=== PATIENT | male | born 1995 | race Caucasian/White ===

== ENCOUNTER → 2017-01-10 | Outpatient (REF) | payer OTHER ==
[~2017-01-10] MED LIST: ALBU83IN IN; CEFZIL250 MG PO; INSULIN NPH SQ; INSULIN REG SQ; LEVO25TABR OR; METO10TA2 OR; No Historical Meds; ZITH100S PO
[2017-01-10 11:36] LABS: BASO # 0.1 K/mm3 (0.0-0.2); BASO % 0.9 % (0.0-1.0); EOS # 0.2 K/mm3 (0.0-0.50); EOS % 3.7 % (0.0-3.0); LARGE UNSTAINED CELL # 0.2 K/mm3 (0.0-0.4); LARGE UNSTAINED CELL % 3.1 % (0.0-4.0); LYMPH # 2.3 K/mm3 (1.5-6.5); LYMPH % 36.1 % (24.0-44.0); MEAN CORPUSCULAR HEMOGLOBIN 29.7 pg (27.0-33.0); MEAN CORPUSCULAR VOLUME 87.2 fl (80.0-96.0); MONO # 0.3 K/mm3 (0.0-0.8); MONO % 5.2 % (0.0-5.0); NEUTROPHILS # 3.3 K/mm3 (1.8-7.7); NEUTROPHILS % 50.9 % (36.0-66.0); PLATELET COUNT, AUTOMATED 179 k/mm3 (150-450); RED CELL DISTRIBUTION WIDTH 12.3 % (11.5-14.5); WHITE BLOOD COUNT 6.4 K/mm3 (4.0-10.0)
[2017-01-10 11:56] LABS: ALBUMIN 3.7 GM/DL (3.2-5.2); ALBUMIN/GLOBULIN RATIO 1.23 (1.00-1.93); ALKALINE PHOSPHATASE 87 U/L (45-117); ALT/SGPT 42 U/L (12-78); ANION GAP 5 MEQ/L (8-16); AST/SGOT 17 U/L (15-37); BILIRUBIN,TOTAL 0.4 MG/DL (0.2-1.0); BLOOD UREA NITROGEN 13 MG/DL (7-18); CALCIUM LEVEL 9.2 MG/DL (8.5-10.1); CARBON DIOXIDE LEVEL 33 MEQ/L (21-32); CHLORIDE LEVEL 106 MEQ/L (98-107); CREATININE FOR GFR 0.99 MG/DL (0.70-1.30); FERRITIN 54 NG/ML (26-388); FREE T4 1.01 NG/DL (0.76-1.46); GLOMERULAR FILTRATION RATE > 60.0 (>60); GLUCOSE, FASTING 84 MG/DL (70-105); PERCENT SATURATION 30.3 % (19.7-37.4); POTASSIUM SERUM 4.4 MEQ/L (3.5-5.1); SODIUM LEVEL 144 MEQ/L (136-145); TOTAL IRON BINDING CAPACITY 294 UG/DL (250-450); TOTAL PROTEIN 6.7 GM/DL (6.4-8.2)
== END ==
LOC: M SFHCPLAZ 09:10
PROVIDERS: ATTEND Family Medicine
DX: I10 Essential (primary) hypertension (principal); L65.9 Nonscarring hair loss, unspecified

== ENCOUNTER → 2018-04-22 | Outpatient (REF) | payer OTHER ==
[2018-04-22 15:29] LABS: BASO # 0.1 10^3/uL (0.0-0.2); BASO % 0.8 % (0.0-1.0); EOS # 0.2 10^3/uL (0.0-0.50); EOS % 3.1 % (0.0-3.0); HEMATOCRIT 46.2 % (42.0-52.0); HEMOGLOBIN 15.4 g/dl (13.5-17.5); IMMATURE GRANULOCYTE % 0.4 % (0-3.0); LYMPH # 2.8 10^3/uL (1.5-6.5); LYMPH % 38.2 % (24.0-44.0); MEAN CORPUSCULAR HEMOGLOBIN 28.5 pg (27.0-33.0); MEAN CORPUSCULAR HGB CONC 33.3 g/dl (32.0-36.5); MEAN CORPUSCULAR VOLUME 85.4 fl (80.0-96.0); MONO # 0.6 10^3/uL (0.0-0.8); MONO % 7.9 % (0.0-5.0); NEUTROPHILS # 3.7 10^3/uL (1.8-7.7); NEUTROPHILS % 49.6 % (36.0-66.0); PLATELET COUNT, AUTOMATED 218 10^3/uL (150-450); RED BLOOD COUNT 5.41 10^6/uL (4.30-6.10); RED CELL DISTRIBUTION WIDTH 12.5 % (11.5-14.5); WHITE BLOOD COUNT 7.4 10^3/uL (4.0-10.0)
[2018-04-22 16:13] LABS: ALBUMIN 3.6 GM/DL (3.2-5.2); ALBUMIN/GLOBULIN RATIO 1.16 (1.00-1.93); ALKALINE PHOSPHATASE 93 U/L (45-117); ALT/SGPT 40 U/L (12-78); ANION GAP 9 MEQ/L (8-16); AST/SGOT 20 U/L (7-37); BILIRUBIN,TOTAL 0.4 MG/DL (0.2-1.0); BLOOD UREA NITROGEN 11 MG/DL (7-18); CALCIUM LEVEL 8.5 MG/DL (8.5-10.1); CARBON DIOXIDE LEVEL 28 MEQ/L (21-32); CHLORIDE LEVEL 107 MEQ/L (98-107); CREATININE FOR GFR 0.86 MG/DL (0.70-1.30); FREE T4 1.03 NG/DL (0.76-1.46); GLOMERULAR FILTRATION RATE > 60.0 (>60); GLUCOSE, FASTING 74 MG/DL (70-100); MAGNESIUM LEVEL 2.1 MG/DL (1.8-2.4); POTASSIUM SERUM 4.4 MEQ/L (3.5-5.1); SODIUM LEVEL 144 MEQ/L (136-145); TOTAL PROTEIN 6.7 GM/DL (6.4-8.2)
== END ==
LOC: M SFHCPLAZ 14:32
DX: I10 Essential (primary) hypertension (principal); E78.2 Mixed hyperlipidemia
CPT/HCPCS: 83735

== ENCOUNTER → 2019-01-22 | Outpatient (REF) | payer OTHER ==
[2019-01-22 12:56] LABS: ALBUMIN 3.9 GM/DL (3.2-5.2); ALT/SGPT 43 U/L (12-78); BILIRUBIN,TOTAL 0.3 MG/DL (0.2-1.0); BLOOD UREA NITROGEN 9 MG/DL (7-18); C REACTIVE PROTEIN QUANTITATIV 0.53 MG/DL (0.00-0.30); CALCIUM LEVEL 9.3 MG/DL (8.5-10.1); CARBON DIOXIDE LEVEL 28 MEQ/L (21-32); CHLORIDE LEVEL 107 MEQ/L (98-107); CHOLESTEROL LEVEL 127 MG/DL (<200); CHOLESTEROL RISK RATIO 2.953 (<5); CREATININE FOR GFR 0.96 MG/DL (0.70-1.30); GLOMERULAR FILTRATION RATE > 60.0 (>60); GLUCOSE, FASTING 87 MG/DL (70-100); HDL CHOLESTEROL 43 MG/DL (>40); LDL CHOLESTEROL 66 MG/DL (<100); NON-HDL-C 84 MG/DL; POTASSIUM SERUM 3.8 MEQ/L (3.5-5.1); SODIUM LEVEL 143 MEQ/L (136-145); TOTAL PROTEIN 6.9 GM/DL (6.4-8.2); TRIGLYCERIDES LEVEL 92 MG/DL (<150)
[2019-01-22 13:20] LABS: HEMOGLOBIN A1c 5.4 %
== END ==
LOC: M SFHCPLAZ 09:02
PROVIDERS: ATTEND Family Medicine
DX: I10 Essential (primary) hypertension (principal); E78.2 Mixed hyperlipidemia; R73.01 Impaired fasting glucose

== ENCOUNTER → 2019-02-05 | Outpatient (CLI) | payer OTHER ==
--- NOTE | 2019-02-10 09:10 | SLEEPHOME ---
DATE OF STUDY: 02/05/2019 ORDERED BY: Dr. Carter Diagnostic home sleep testing was performed due to concern for the obstructive sleep apnea syndrome. For testing, a nocturnal T3 respiratory monitoring device was used. Continuous record was made of pulse, oxygen saturation, airflow, chest and abdominal strain and body position. 10 hours and 59 minutes of data were reviewed. There 7 hours and 11 minutes marked as time in bed. During the interval marked time in bed, there were 79 respiratory events identified of 10 seconds in duration or greater for a respiratory event index of 11. The events were primarily obstructive. Baseline pulse rate 68 beats per minute, pulse rate ranged 43-166. Baseline saturation 90.6%, saturations fell to 85%. Testing was performed in both the supine and nonsupine positions. IMPRESSION: Abnormal home sleep testing with repetitive respiratory events and oxygen desaturations to 85% with a respiratory event index of 11 is consistent with the obstructive sleep apnea syndrome. RECOMMENDATION: The patient should be encouraged to undergo formal sleep evaluation.
== END ==
LOC: M SLEEP HO 09:56
PROVIDERS: ATTEND Family Medicine
DX: G47.33 Obstructive sleep apnea (adult) (pediatric) (principal)

== ENCOUNTER → 2019-12-21 | Outpatient (CLI) | payer OTHER ==
[2019-12-21 13:23] LABS: ALBUMIN 3.5 GM/DL (3.2-5.2); ALT/SGPT 56 U/L (12-78); BILIRUBIN,TOTAL 0.3 MG/DL (0.2-1.0); BLOOD UREA NITROGEN 10 MG/DL (7-18); CARBON DIOXIDE LEVEL 29 MEQ/L (21-32); CHLORIDE LEVEL 107 MEQ/L (98-107); CHOLESTEROL LEVEL 145 MG/DL (<200); CHOLESTEROL RISK RATIO 3.536 (<5); CREATININE FOR GFR 0.85 MG/DL (0.70-1.30); GLOMERULAR FILTRATION RATE > 60.0 (>60); GLUCOSE, FASTING 84 MG/DL (70-100); HDL CHOLESTEROL 41 MG/DL (>40); LDL CHOLESTEROL 83 MG/DL (<100); NON-HDL-C 104 MG/DL; POTASSIUM SERUM 4.1 MEQ/L (3.5-5.1); PTH INTACT 40.8 PG/ML (18.5-88.0); SODIUM LEVEL 143 MEQ/L (136-145); TOTAL 25(OH) VITAMIN D 26.6 NG/ML (30.0-100.0); TOTAL PROTEIN 6.5 GM/DL (6.4-8.2); TRIGLYCERIDES LEVEL 104 MG/DL (<150)
[2019-12-21 16:06] LABS: HEMOGLOBIN A1c 5.5 %
== END ==
LOC: M WUC 09:56
PROVIDERS: ATTEND Family Medicine
DX: R73.01 Impaired fasting glucose (principal); E78.2 Mixed hyperlipidemia; E55.9 Vitamin D deficiency, unspecified

== ENCOUNTER 2020-06-03 19:09 | Emergency (ER) | payer OTHER ==
[~2020-06-03] VITALS: Ht 193 cm; Wt 168.4 kg
[2020-06-03] MEDS ORDERED: AMOX875T PO (19:23)
[2020-06-03] MEDS ORDERED: LOSA25TA14 PO (19:23)
[2020-06-03] MEDS ORDERED: MECL-86 PO (19:23)
[2020-06-03 20:06] LABS: BASO # 0.1 10^3/uL (0.0-0.2); BASO % 0.7 % (0.0-1.0); EOS # 0.2 10^3/uL (0.0-0.5); EOS % 1.8 % (0.0-3.0); HEMATOCRIT 47.3 % (42.0-52.0); HEMOGLOBIN 15.8 g/dl (13.5-17.5); LYMPH # 2.4 10^3/uL (1.5-5.0); LYMPH % 28.5 % (24.0-44.0); MEAN CORPUSCULAR HEMOGLOBIN 27.8 pg (27.0-33.0); MEAN CORPUSCULAR HGB CONC 33.4 g/dl (32.0-36.5); MEAN CORPUSCULAR VOLUME 83.1 fl (80.0-96.0); MONO # 0.6 10^3/uL (0.0-0.8); MONO % 7.4 % (0.0-5.0); NEUTROPHILS # 5.2 10^3/uL (1.5-8.5); NEUTROPHILS % 61.4 % (36.0-66.0); PLATELET COUNT, AUTOMATED 255 10^3/uL (150-450); RED BLOOD COUNT 5.69 10^6/uL (4.30-6.10); WHITE BLOOD COUNT 8.4 10^3/uL (4.0-10.0)
--- NOTE | 2020-06-03 20:26 | REPVR ---
PROCEDURE INFORMATION: Exam: XR Chest, 1 View Exam date and time: 06/03/2020 8:06 PM Age: 25 years old Clinical indication: Other: Chest pain TECHNIQUE: Imaging protocol: XR of the chest Views: 1 view. COMPARISON: CR Chest, 2 view PA, Lat 10/30/2014 8:20 PM FINDINGS: Lungs: Unremarkable. No consolidation. Pleural space: Unremarkable. No pleural effusion. No pneumothorax. Heart/Mediastinum: Unremarkable. No cardiomegaly. Bones/joints: No acute bone or joint abnormality. IMPRESSION: No acute findings. Electronically signed by: Ezekiel Connor On 06/03/2020 20:26:58 PM
[2020-06-03 20:43] LABS: ALBUMIN 3.8 GM/DL (3.2-5.2); ALT/SGPT 52 U/L (12-78); BILIRUBIN,TOTAL 0.4 MG/DL (0.2-1.0); BLOOD UREA NITROGEN 9 MG/DL (7-18); CALCIUM LEVEL 9.6 MG/DL (8.5-10.1); CARBON DIOXIDE LEVEL 27 MEQ/L (21-32); CHLORIDE LEVEL 109 MEQ/L (98-107); CK-MB VALUE MASS < 1.0 NG/ML (<3.6); CPK CREATINE PHOSPHOKINASE 83 U/L (39-308); CREATININE FOR GFR 0.94 MG/DL (0.70-1.30); GLOMERULAR FILTRATION RATE > 60.0 (>60); GLUCOSE, FASTING 95 MG/DL (70-100); LIPASE 123 U/L (73-393); POTASSIUM SERUM 4.2 MEQ/L (3.5-5.1); SODIUM LEVEL 141 MEQ/L (136-145); TOTAL PROTEIN 7.1 GM/DL (6.4-8.2); TROPONIN I < 0.02 NG/ML (< 0.10)
[2020-06-03 21:19] VITALS: BP 135/86
--- NOTE | 2020-06-04 07:40 | ECGEPIP ---
[facility] - ED Test Date: 2020-06-03 Pat Name: ALFRED NOGUERA Department: Room: - Gender: Male [employer]: CLAUDIA : [id number] Requested By: DUONG HORVATH Order Number: [id number] Reading MD: Jr Mahmood Measurements Intervals [place] Rate: 90 P: 17 AK: 146 QRS: -7 QRSD: 113 T: 29 QT: 343 QTc: 420 Interpretive Statements SINUS RHYTHM MODERATE INTRAVENTRICULAR CONDUCTION DELAY BASELINE ARTIFACT AFFECTS INTERPRETATION SIMILAR TO 01/01/16 Electronically Signed on 06-04-2020 7:40:23 EST by Jr Mahmood
== END 2020-06-03 21:26 | disposition home or self-care (01) ==
LOC: M ED 19:09
DX: F43.0 Acute stress reaction (principal); I10 Essential (primary) hypertension; F41.9 Anxiety disorder, unspecified; R07.9 Chest pain, unspecified; Z79.899 Other long term (current) drug therapy; Z79.2 Long term (current) use of antibiotics

== ENCOUNTER → 2020-07-29 | Outpatient (REF) | payer OTHER ==
[~2020-07-29] MED LIST changes: +AMOX875T PO; +LOSA25TA14 PO; +MECL-86 PO
== END ==
LOC: M SFHCPLAZ 15:11
PROVIDERS: ATTEND Physician Assistant Medical
DX: H81.20 Vestibular neuronitis, unspecified ear (principal)

== ENCOUNTER → 2020-11-21 | Outpatient (CLI) | payer OTHER | LOC: M LABSMTC 13:01 | PROVIDERS: ATTEND Pediatrics | DX: Z11.52 Encounter for screening for COVID-19 (principal) ==

== ENCOUNTER 2020-11-27 13:49 | Inpatient (IN) | payer OTHER ==
[~2020-11-27] VITALS: Ht 193 cm; Wt 162.5 kg
[2020-11-27] MEDS ORDERED: LOSA50TA88 (13:59)
[2020-11-27] MEDS ORDERED: MECL-58 PO (13:59)
[2020-11-27] MEDS ORDERED: LORA-674 PO (13:59)
[2020-11-27] MEDS ORDERED: NS 500 ML IV ONE (14:40)
[2020-11-27 15:17] LABS: BASO % 0.8 % (0.0-1.0); EOS % 0.3 % (0.0-3.0); HEMATOCRIT 48.2 % (42.0-52.0); LYMPH # 1.6 10^3/uL (1.5-5.0); MEAN CORPUSCULAR HEMOGLOBIN 27.5 pg (27.0-33.0); MEAN CORPUSCULAR HGB CONC 33.2 g/dl (32.0-36.5); MONO # 0.4 10^3/uL (0.0-0.8); NEUTROPHILS # 1.8 10^3/uL (1.5-8.5); NEUTROPHILS % 47.1 % (36.0-66.0); PLATELET COUNT, AUTOMATED 126 10^3/uL (150-450); RED BLOOD COUNT 5.81 10^6/uL (4.30-6.10); WHITE BLOOD COUNT 3.9 10^3/uL (4.0-10.0)
[2020-11-27 15:33] LABS: INR 0.95; PROTHROMBIN TIME 12.9 SECONDS (12.5-14.3)
[2020-11-27 15:34] LABS: PARTIAL THROMBOPLASTIN TIME 28.2 SECONDS (24.2-38.5)
--- NOTE | 2020-11-27 15:34 | REP ---
INDICATION: Coronavirus workup. COMPARISON: Comparison chest x-ray June 03, 2020. TECHNIQUE: Portable upright AP chest radiograph. FINDINGS: There is patchy airspace consolidation in the left perihilar region and to a lesser extent right upper lobe consistent with pneumonia. Pleural angles are sharp. Heart size is normal. EKG electrodes are seen.. IMPRESSION: Patchy bilateral infiltrates consistent with pneumonia.. <Electronically signed by Pradip Padron > 11/27/20 [id number]
[2020-11-27 15:36] LABS: D-DIMER QUANT 521.16 ng/ml (<500)
[2020-11-27] MEDS ORDERED: cefTRIAXone SOD 2 GM in D5W MINI-BAG PLUS 50 ML IV ONE (15:40)
[2020-11-27 15:54] LABS: ALBUMIN 3.3 GM/DL (3.2-5.2); BILIRUBIN,TOTAL 0.8 MG/DL (0.2-1.0); BLOOD UREA NITROGEN 9 MG/DL (7-18); C REACTIVE PROTEIN QUANTITATIV 4.41 MG/DL (0.00-0.30); CALCIUM LEVEL 8.4 MG/DL (8.5-10.1); CARBON DIOXIDE LEVEL 29 MEQ/L (21-32); CHLORIDE LEVEL 104 MEQ/L (98-107); CPK CREATINE PHOSPHOKINASE 697 U/L (39-308); CREATININE FOR GFR 0.88 MG/DL (0.70-1.30); GLOMERULAR FILTRATION RATE > 60.0 (>60); GLUCOSE, FASTING 86 MG/DL (70-100); LDH LACTATE DEHYDROGENASE 432 U/L (87-241); MAGNESIUM LEVEL 2.1 MG/DL (1.8-2.4); POTASSIUM SERUM 3.9 MEQ/L (3.5-5.1); SODIUM LEVEL 140 MEQ/L (136-145); TOTAL PROTEIN 6.6 GM/DL (6.4-8.2); TROPONIN I < 0.02 NG/ML (< 0.10)
[2020-11-27 15:56] LABS: ALT/SGPT 48 U/L (12-78); CK-MB VALUE MASS 1.6 NG/ML (<3.6); MB/CK RELATIVE INDEX 0.23 (< OR =4)
[2020-11-27] MEDS ORDERED: ISOVUE-370 76% 100ML VIAL As Ordered ONE (16:22)
[2020-11-27] MEDS ORDERED: dexameTHASONE 20MG/5ML VIAL (J1100 PER 1MG) IV ONE (17:35)
--- NOTE | 2020-11-27 17:52 | REPVR ---
PROCEDURE INFORMATION: Exam: CTA Chest With Contrast Exam date and time: 11/27/2020 5:08 PM Age: 25 years old Clinical indication: Abnormal findings; Abnormal diagnostic tests; Elevated d-dimer; Additional info: SOB elevated d-dimer TECHNIQUE: Imaging protocol: Computed tomographic angiography of the chest with contrast. 3D rendering (Not supervised by radiologist): MIP and/or 3D reconstructed images were created by the technologist. Radiation optimization: All CT scans at this facility use at least one of these dose optimization techniques: automated exposure control; mA and/or kV adjustment per patient size (includes targeted exams where dose is matched to clinical indication); or iterative reconstruction. Contrast material: ISOVUE 370; Contrast volume: 75 ml; Contrast route: INTRAVENOUS (IV); COMPARISON: [place] PORTABLE CHEST X-RAY 11/27/2020 3:12 PM FINDINGS: Pulmonary arteries: No CT evidence of any large central acute pulmonary embolism. The IV contrast concentration within the pulmonary arteries is technically inadequate and evaluation of the smaller segmental and subsegmental pulmonary arteries is not diagnostic. Aorta: No CT evidence of acute thoracic aortic dissection, thoracic aneurysm or acute intramural thoracic aortic hematoma. Lungs: Extensive multifocal mainly peripherally-based ground-glass densities are seen throughout both lungs, involving the upper and lower lobes. Pleural spaces: No pleural effusions. Heart: The heart size is normal. Normal pulmonary vasculature. No significant coronary artery calcification is present. Lymph nodes: Unremarkable. No enlarged lymph nodes. Bones/joints: The bony structures of the chest are normal. IMPRESSION: 1. No CT evidence of any large central acute pulmonary embolism. The IV contrast concentration within the pulmonary arteries is low and technically inadequate and evaluation of the smaller segmental and subsegmental pulmonary arteries is not diagnostic. A nuclear medicine V/Q lung scan might be of further diagnostic value if thought clinically necessary. 2. No CT evidence of acute thoracic aortic dissection, thoracic aneurysm or acute intramural thoracic aortic hematoma. 3. The heart size is normal. Normal pulmonary vasculature. No significant coronary artery calcification is present. 4. Extensive multifocal mainly peripherally-based ground-glass densities are seen throughout both lungs, involving the upper and lower lobes. These findings could represent viral pneumonia such as COVID-19, influenza, RSV, adenovirus, metapneumovirus, other alonzo virus infections such as SARS (Severe Acute Respiratory Syndrome) and MERS (middle East Respiratory Syndrome) and developing community-acquired pneumonias such as Streptococcus, mycoplasma and chlamydia-related pneumonia. Eosinophilic pneumonia, drug toxicity and connective tissue disease are additionally in the differential diagnosis. Intra-alveolar hemorrhage is thought unlikely, in the absence of hemoptysis or trauma. The absence of intrapulmonary nodules, cavitation, pleural effusions and mediastinal lymphadenopathy militates somewhat towards a diagnosis of COVID-19 disease. 5. The bony structures of the chest are normal. Electronically signed by: Krishna Brown On 11/27/2020 17:51:53 PM
[2020-11-27] MEDS ORDERED: LOSA50TA88 PO (17:53)
--- NOTE | 2020-11-27 19:10 | HPE ---
HISTORY AND PHYSICAL DATE OF ADMISSION: 11/27/2020 PRIMARY CARE PROVIDER: Suresh Carter M.D. PRINCIPAL DIAGNOSES: COVID pneumonia with sepsis. HISTORY OF PRESENT ILLNESS: The patient is a 25-year-old hypertensive with morbid obesity who is being admitted with COVID pneumonia. His father was just discharged from the hospital with COVID and the patient had a positive COVID test on 11/21/2020. He said he had been having symptoms for a few days before that so this would put him on about his eighth day of symptoms, which primarily is loss of taste, stomach upset, and some increasing shortness of breath. He had an angiographic CT in the emergency room that shows extensive multifocal infiltrates primarily ground-glass densities upper and lower lobes. His CT is negative for pulmonary embolism. PAST MEDICAL HISTORY: 1. Hypertension treated with losartan 25 mg b.i.d. 2. Vitamin D deficiency. 3. Allergic rhinitis and sinusitis, which have been recurrent. 4. MIGUEL A. He had a home sleep test that was positive 02/2019; he is refusing home CPAP or an in-lab sleep study. 5. Prediabetes. SOCIAL HISTORY: He had ventilation tubes in both ears as an and had teeth extraction 01/2019. FAMILY HISTORY: Father with gout. Mother with hypothyroidism. SOCIAL HISTORY: Nonsmoker. No alcohol. Single. Lives with his parents. 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 ALLERGIES: MILLIE INHIBITORS cause dyspnea. REVIEW OF SYSTEMS: No hemoptysis, chest pain, palpitations, polyuria, polydipsia, rectal bleeding, or diarrhea. No fever in the emergency room. PHYSICAL EXAMINATION: VITAL SIGNS: His last BMI in the office from a few months ago was 47. His vital signs are as listed in the ER record. O2 saturation was 100% on room air. BP 130/85, pulse in the 120s. GENERAL APPEARANCE: He is alert, conversant, in no distress, and morbidly obese. HEENT: Unremarkable. LUNGS: Scattered rhonchi and wheezes in all [place] with good air movement. HEART: Regular rhythm. No murmur. ABDOMEN: Soft, obese, and nontender with no masses. EXTREMITIES: No clubbing, cyanosis, or edema. No erythema and no swelling in the calves. Normal strength in the arms and legs. NEUROLOGIC: Nonfocal. Normal strength, reflexes, and sensation. LABORATORY DATA: CT angiogram as summarized above. White count 3.9, hemoglobin 16, platelets 126,000. Sodium 140, potassium 3.9, BUN 9, creatinine 0.8, glucose 86. LDH 432. CPK 697. C-reactive protein 4.4. D-dimer 521. IMPRESSION/PLAN: 1. COVID pneumonia. The patient will be admitted to the COVID unit. Intravenous (IV) Decadron, supplemental oxygen as needed, and remdesivir has been ordered. Currently he meets sepsis criteria. His procalcitonin level is low, I am not continuing any intravenous antibacterial treatment at this point. He did receive Rocephin in the emergency room. 2. Hypertension. Continue his current dose of losartan. 3. Morbid obesity. Increases his risk of complications from the COVID pneumonia.
[2020-11-27] MEDS ORDERED: REMDESIVIR 200 MG in NS 250 ML IV ONE (20:00)
--- NOTE | 2020-11-27 20:44 | ECGEPIP ---
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
[2020-11-27] MEDS ORDERED: SODIUM CHLORIDE 0.9% INJ 10 ML SYR IV ONE (21:00)
[2020-11-27] MEDS: LOSARTAN 50MG TABLET PO SCH (23:45)
[2020-11-27 23:54] VITALS: BP 125/71
[2020-11-28 00:15] VITALS: O2SAT 91
[2020-11-28] MEDS: ENOXAPARIN 80MG/0.8ML SYRINGE (J1650 PER 10MG) SC SCH ×3 (01:58→21:11)
[2020-11-28 04:00] VITALS: O2SAT 93
[2020-11-28 04:30] VITALS: BP 121/71
[2020-11-28 08:00] VITALS: BP 106/62
[2020-11-28 08:32] LABS: HEMATOCRIT 44.9 % (42.0-52.0); HEMOGLOBIN 14.9 g/dl (13.5-17.5); MEAN CORPUSCULAR HEMOGLOBIN 27.7 pg (27.0-33.0); MEAN CORPUSCULAR HGB CONC 33.2 g/dl (32.0-36.5); MEAN CORPUSCULAR VOLUME 83.5 fl (80.0-96.0); PLATELET COUNT, AUTOMATED 158 10^3/uL (150-450); RED BLOOD COUNT 5.38 10^6/uL (4.30-6.10); WHITE BLOOD COUNT 1.6 10^3/uL (4.0-10.0)
[2020-11-28 08:57] LABS: BLOOD UREA NITROGEN 12 MG/DL (7-18); CARBON DIOXIDE LEVEL 26 MEQ/L (21-32); CHLORIDE LEVEL 106 MEQ/L (98-107); GLOMERULAR FILTRATION RATE > 60.0 (>60); GLUCOSE, FASTING 122 MG/DL (70-100); MAGNESIUM LEVEL 2.4 MG/DL (1.8-2.4); POTASSIUM SERUM 4.2 MEQ/L (3.5-5.1); SODIUM LEVEL 140 MEQ/L (136-145)
[2020-11-28 09:24] LABS: ANISOCYTOSIS 1+; ATYPICAL LYMPH 19 % (0-5); LYMPHOCYTES 27 % (16-44); METAMYELOCYTES 1 % (0-0); MONOCYTES 11 % (0-5); MYELOCYTES 2 % (0-0); NEUTROPHILS 27 % (28-66); PLATELET ESTIMATE NORMAL (NORMAL)
--- NOTE | 2020-11-28 09:50 | IPNPDOC ---
Subjective Date Seen The patient was seen on 11/28/20. Subjective Chief Complaint/HPI No complaints overnight. Needing 2 Litrs of oxygen. will try to wean. Objective Physical Examination General Exam: Positive: Alert, Cooperative, No Acute Distress Eye Exam: Positive: PERRLA, Conjunctiva & lids normal, EOMI; Negative: Sclera icteric ENT Exam: Positive: Atraumatic, Mucous membr. moist/pink, Pharynx Normal Neck Exam: Positive: Supple; Negative: JVD, thyromegaly Chest Exam: Positive: Normal air movement, Other (bilateral fine crackles. ) Heart Exam: Positive: Rate Normal, Regular Rhythm, Normal S1, Normal S2; Negative: Murmurs, Rubs Abdomen Exam: Positive: Normal bowel sounds, Soft; Negative: Tenderness, Hepatospenomegaly Extremity Exam: Negative: Clubbing, Cyanosis, Edema Assessment /Plan Assessment The patient is a 25-year-old hypertensive with morbid obesity who is being adm itted with COVID pneumonia. His father was just discharged from the hospital with COVID and the patient had a positive COVID test on 11/21/2020. He said he had been having symptoms for a few days before that so this would put him on about his eighth day of symptoms, which primarily is loss of taste, stomach upset, and some increasing shortness of breath. He had an angiographic CT in the emergency room that shows extensive multifocal infiltrates primarily ground- glass densities upper and lower lobes. His CT is negative for pulmonary embolism. He was admitted for COVID pneumonia with hypoxia COVID pneumonia with SIRS Intravenous (IV) Decadron, supplemental oxygen as needed, and remdesivir has been ordered. CT angio negative for Pulmonary embolism extensive patchy infiltrates. acapella, incentive spirometry encourage proning. Procalcitonin low. Leukopenia from viral infection. Hypertension. Continue his current dose of losartan. Morbid obesity. Increases his risk of complications from the COVID pneumonia. MIGUEL A in home sleep study in 2019. refused CPAP and formal sleep study Plan/VTE VTE Prophylaxis Ordered?: Yes VS, I&O, 24H, Fishbone Vital Signs/I&O Vital Signs Date Time Temp Pulse Resp B/P (MAP) Pulse Ox O2 Delivery O2 Flow Rate FiO2 11/28/20 09:04 95.3 11/28/20 08:00 81 16 106/62 (77) 97 Nasal Cannula 2.0 I&O- Last 24 Hours up to 6 AM 11/28/20 06:00 Intake Total 1100 ml Output Total 600 ml Balance 500 ml Laboratory Data 24H LABS Laboratory Tests 2 11/27/20 14:58: Immature Granulocyte % (Auto) 0.8, Neutrophils (%) (Auto) 47.1, Lymphocytes (%) (Auto) 41.0, Monocytes (%) (Auto) 10.0H, Eosinophils (%) (Auto) 0.3, Basophils (%) (Auto) 0.8, Neutrophils # (Auto) 1.8, Lymphocytes # (Auto) 1.6, Monocytes # (Auto) 0.4, Eosinophils # (Auto) 0.0, Basophils # (Auto) 0.0, Nucleated Red Blood Cells % (auto) 0.0, Prothrombin Time 12.9, Prothromb Time International Ratio 0.95, Activated Partial Thromboplast Time 28.2, D-Dimer, Quantitative 521.16H, Anion Gap 7L, Glomerular Filtration Rate > 60.0, Lactic Acid Level 1.1, Calcium Level 8.4L, Magnesium Level 2.1, Total Bilirubin 0.8, Aspartate Amino Transf (AST/SGOT) 59H, Alanine Aminotransferase (ALT/SGPT) 48, Alkaline Phosphatase 56, Lactate Dehydrogenase 432H, Total Creatine Kinase 697H, Creatine Kinase MB 1.6, Creatine Kinase MB Relative Index 0.23, Troponin I < 0.02, C- Reactive Protein, Quantitative 4.41H, Total Protein 6.6, Albumin 3.3, Albumin/Globulin Ratio 1.0, Procalcitonin 0.09 11/28/20 01:09: 11/28/20 08:08: Neutrophils (%) (Auto) , Neutrophils # (Auto) , Nucleated Red Blood Cells % (auto) 0.0, Anion Gap 8, Glomerular Filtration Rate > 60.0, Calcium Level 9.0, Magnesium Level 2.4, Neutrophils 27L, Band Neutrophils 13H, Lymphocytes (Manual) 27, Monocytes (Manual) 11H, Metamyelocytes 1H, Myelocytes 2H, Atypical Lymphocytes 19H, Anisocytosis 1+, Platelet Estimate NORMAL CBC/BMP Laboratory Tests 11/27/20 14:58 11/28/20 08:08 Microbiology Microbiology 11/27/20 Blood Culture, Received Pending 11/27/20 Blood Culture, Received Pending PRASHANT GONZALEZ MD November 28, 2020 09:50
[2020-11-28] MEDS: dexameTHASONE 4 MG/ML 1ML VIAL (J1100 PER 1MG) IV SCH (09:52)
[2020-11-28] MEDS: ASPIRIN 81MG ENTERIC TABLET PO SCH (09:52)
[2020-11-28] MEDS: LOSARTAN 50MG TABLET PO SCH ×2 (09:54→21:12)
[2020-11-28] MEDS: PANTOPRAZOLE 40MG TAB (PROTONIX) PO SCH ×2 (10:07→21:11)
[2020-11-28 12:00] VITALS: BP 140/82
[2020-11-28] MEDS ORDERED: REMDESIVIR 100 MG in NS 250 ML IV SCH (21:00)
[2020-11-28 22:00] VITALS: BP 145/76
[2020-11-28] MEDS ORDERED: SODIUM CHLORIDE 0.9% INJ 10 ML SYR IV SCH (22:00)
[2020-11-29 05:42] VITALS: BP 130/79
[2020-11-29 07:49] LABS: BASO % 0.2 % (0.0-1.0); HEMATOCRIT 44.4 % (42.0-52.0); HEMOGLOBIN 14.8 g/dl (13.5-17.5); LYMPH # 1.2 10^3/uL (1.5-5.0); LYMPH % 27.3 % (24.0-44.0); MEAN CORPUSCULAR HEMOGLOBIN 27.8 pg (27.0-33.0); MEAN CORPUSCULAR HGB CONC 33.3 g/dl (32.0-36.5); MEAN CORPUSCULAR VOLUME 83.3 fl (80.0-96.0); MONO # 0.5 10^3/uL (0.0-0.8); MONO % 11.7 % (2.0-8.0); NEUTROPHILS # 2.7 10^3/uL (1.5-8.5); NEUTROPHILS % 59.5 % (36.0-66.0); PLATELET COUNT, AUTOMATED 233 10^3/uL (150-450); RED BLOOD COUNT 5.33 10^6/uL (4.30-6.10); WHITE BLOOD COUNT 4.5 10^3/uL (4.0-10.0)
[2020-11-29 08:01] LABS: INR 0.99; PROTHROMBIN TIME 13.3 SECONDS (12.5-14.3)
[2020-11-29 08:02] LABS: PARTIAL THROMBOPLASTIN TIME 27.9 SECONDS (24.2-38.5)
[2020-11-29 08:17] LABS: ALT/SGPT 48 U/L (12-78); BILIRUBIN,DIRECT 0.3 MG/DL (0.0-0.2); BILIRUBIN,TOTAL 0.6 MG/DL (0.2-1.0); BLOOD UREA NITROGEN 11 MG/DL (7-18); CALCIUM LEVEL 8.8 MG/DL (8.5-10.1); CARBON DIOXIDE LEVEL 28 MEQ/L (21-32); CHLORIDE LEVEL 109 MEQ/L (98-107); CPK CREATINE PHOSPHOKINASE 158 U/L (39-308); CREATININE FOR GFR 0.75 MG/DL (0.70-1.30); FERRITIN 475 NG/ML (26-388); GLOMERULAR FILTRATION RATE > 60.0 (>60); GLUCOSE, FASTING 119 MG/DL (70-100); LDH LACTATE DEHYDROGENASE 256 U/L (87-241); MAGNESIUM LEVEL 2.3 MG/DL (1.8-2.4); NT-PRO BNP 40 PG/ML (<125); SODIUM LEVEL 141 MEQ/L (136-145); TOTAL PROTEIN 6.5 GM/DL (6.4-8.2); TROPONIN I < 0.02 NG/ML (< 0.10)
[2020-11-29 08:30] VITALS: O2SAT 97
[2020-11-29 08:52] VITALS: BP 130/79
[2020-11-29] MEDS: dexameTHASONE 4 MG/ML 1ML VIAL (J1100 PER 1MG) IV SCH (08:52)
[2020-11-29] MEDS: ASPIRIN 81MG ENTERIC TABLET PO SCH (08:52)
[2020-11-29] MEDS: LOSARTAN 50MG TABLET PO SCH (08:52)
[2020-11-29] MEDS: PANTOPRAZOLE 40MG TAB (PROTONIX) PO SCH (08:52)
[2020-11-29] MEDS: ENOXAPARIN 80MG/0.8ML SYRINGE (J1650 PER 10MG) SC SCH (08:54)
[2020-11-29] MEDS ORDERED: MECLIZINE 25 MG TABLET PO PRN (09:05)
[2020-11-29] MEDS ORDERED: PANT40TA29 PO (11:23)
[2020-11-29] MEDS ORDERED: ASPI-551 PO (11:23)
[2020-11-29] MEDS ORDERED: DEXA6TAB PO (11:23)
--- NOTE | 2020-11-29 11:31 | DS.PDOC ---
Discharge Summary General Date of Admission November 27, 2020 at 18:41 Date of Discharge 11/29/20 Discharge Summary PROCEDURES PERFORMED DURING STAY: [None]. DISCHARGE DIAGNOSES: Covid pneumonia SIRS Leukopenia Hypertension Morbid obesity MIGUEL A COMPLICATIONS/CHIEF COMPLAINT: Pneumonia Due To Covid 19. HOSPITAL COURSE: The patient is a 25-year-old hypertensive with morbid obesity who is being admitted with COVID pneumonia. His father was just discharged from the hospital with COVID and the patient had a positive COVID test on 11/21/2020. He said he had been having symptoms for a few days before that so is would put him on about his eighth day of symptoms, which primarily is loss of taste, stomach upset, and some increasing shortness of breath. He had an angiographic CT in the emergency room that shows extensive multifocal infiltrates primarily ground-glass densities upper and lower lobes. His CT is negative for pulmonary embolism. He was admitted for COVID pneumonia with hypoxia. Now hypoxia has resolved. He has been off oxygen for > 12 hours. COVID pneumonia with SIRS Intravenous (IV) Decadron, supplemental oxygen as needed, and remdesivir has been ordered. CT angio negative for Pulmonary embolism extensive patchy infiltrates. continue incentive spirometry Continue proning and lateral decubitus during sleeping. Procalcitonin low. Leukopenia from viral infection. Hypertension. Continue his current dose of losartan. Morbid obesity. Increases his risk of complications from the COVID pneumonia. MIGUEL A in home sleep study in 2019. refused CPAP and formal sleep study DISCHARGE MEDICATIONS: Please see below. ALLERGIES: Please see below. PHYSICAL EXAMINATION ON DISCHARGE: VITAL SIGNS: Please see below. General Exam: Positive: Alert, Cooperative, No Acute Distress Eye Exam: Positive: PERRLA, Conjunctiva & lids normal, EOMI; Negative: Sclera icteric ENT Exam: Positive: Atraumatic, Mucous membr. moist/pink, Pharynx Normal Neck Exam: Positive: Supple; Negative: JVD, thyromegaly Chest Exam: Positive: Normal air movement, Other (bilateral fine crackles. ) Heart Exam: Positive: Rate Normal, Regular Rhythm, Normal S1, Normal S2; Negative: Murmurs, Rubs Abdomen Exam: Positive: Normal bowel sounds, Soft; Negative: Tenderness, Hepatosplenomegaly Extremity Exam: Negative: Clubbing, Cyanosis, Edema LABORATORY DATA: Please see below. ACTIVITY: [As tolerated]. DIET: As tolerated DISCHARGE PLAN: Home DISCHARGE INSTRUCTIONS: Follow up with PMD in 1 week DISCHARGE CONDITION: [Stable]. TIME SPENT ON DISCHARGE: 35 minutes. Vital Signs/I&Os Vital Signs Date Time Temp Pulse Resp B/P (MAP) Pulse Ox O2 Delivery O2 Flow Rate FiO2 11/29/20 08:52 130/79 11/29/20 08:30 97 Room Air 11/29/20 05:42 97.3 64 16 11/28/20 20:00 1.0 I&O- Last 24 Hours up to 6 AM 11/29/20 06:00 Intake Total 1710 ml Output Total 0 ml Balance 1710 ml Laboratory Data Labs 24H Laboratory Tests 2 11/29/20 07:30: Immature Granulocyte % (Auto) 1.3, Neutrophils (%) (Auto) 59.5, Lymphocytes (%) (Auto) 27.3, Monocytes (%) (Auto) 11.7H, Eosinophils (%) (Auto) 0.0, Basophils (%) (Auto) 0.2, Neutrophils # (Auto) 2.7, Lymphocytes # (Auto) 1.2L, Monocytes # (Auto) 0.5, Eosinophils # (Auto) 0.0, Basophils # (Auto) 0.0, Nucleated Red Blood Cells % (auto) 0.0, Prothrombin Time 13.3, Prothromb Time International Ratio 0.99, Activated Partial Thromboplast Time 27.9, Fibrinogen 384, Anion Gap 4L, Glomerular Filtration Rate > 60.0, Calcium Level 8.8, Magnesium Level 2.3, Ferritin 475H, Total Bilirubin 0.6, Direct Bilirubin 0.3H, Aspartate Amino Transf (AST/SGOT) 28, Alanine Aminotransferase (ALT/SGPT) 48, Alkaline Phosphatase 53, Lactate Dehydrogenase 256H, Total Creatine Kinase 158#, Troponin I < 0.02, IE-Hrk-B-Type Natriuretic Peptide 40, Total Protein 6.5, Albumin 3.0L, Albumin/Globulin Ratio 0.9, Procalcitonin <0.05 CBC/BMP Laboratory Tests 11/29/20 07:30 Microbiology Microbiology 11/27/20 Blood Culture - Preliminary, Resulted No growth after 24 hours . All specim... 11/27/20 Blood Culture - Preliminary, Resulted No growth after 24 hours . All specim... Discharge Medications Scheduled Aspirin (Aspirin EC) 81 Mg Tablet.dr, 81 MG PO DAILY Dexamethasone (Dexamethasone) 6 Mg Tablet, 6 MG PO DAILY Loratadine (Loratadine) 10 Mg Tablet, 10 MG PO DAILY, (Reported) Losartan Potassium (Losartan Potassium) 50 Mg Tablet, 25 MG PO BID, (Reported) Pantoprazole Sodium (Pantoprazole Sodium) 40 Mg Tablet.dr, 40 MG PO DAILY Scheduled PRN Meclizine HCl (Meclizine HCl) 25 Mg Tablet, 25 MG PO Q6H PRN for DIZZINESS, (Reported) Allergies Coded Allergies: No Known Allergies (Unverified , 11/27/20) PRASHANT GONZALEZ MD November 29, 2020 11:31
[2020-11-29] MEDS ORDERED: REMDESIVIR 100 MG in NS 250 ML IV SCH (15:00)
[2020-11-29] MEDS ORDERED: SODIUM CHLORIDE 0.9% INJ 10 ML SYR IV SCH (16:00)
[2020-11-30 14:09] LABS: BODY FLUID CULTURE Not indicated. (.); LEGIONELLA ANTIGEN URINE Negative (Negative); ORGANISM ID Not indicated. (.); SPECIMEN SOURCE Urine (.); URINE STREP PNEUMONIAE ANTIGEN Negative (Negative)
[2020-12-01 16:33] LABS: MYCOPLASMA PNEUMONIAE IgG 2611 U/mL (0-99); MYCOPLASMA PNEUMONIAE IgM <770 U/mL (0-769)
== END 2020-11-29 17:05 | disposition home or self-care (01) | DRG 137 ==
LOC: M ED 13:49 → M ED INP 18:41 → ENRESERV 11-28 00:05 → M 4MAIN 11-28 00:05
PROVIDERS: ADMIT Family Medicine; ATTEND Internal Medicine Nephrology
PROC: 3E0333Z Introduction of Anti-inflammatory into Peripheral Vein, Percutaneous Approach (ICD-10-PCS; principal; 2020-11-27)
PROC: XW033E5 Introduction of Remdesivir Anti-infective into Peripheral Vein, Percutaneous Approach, New Technology Group 5 (ICD-10-PCS; 2020-11-27)
DX: U07.1 COVID-19 (principal); J12.82 Pneumonia due to coronavirus disease 2019; Z68.41 Body mass index [BMI] 40.0-44.9, adult; E66.01 Morbid (severe) obesity due to excess calories; I10 Essential (primary) hypertension; E55.9 Vitamin D deficiency, unspecified; J30.9 Allergic rhinitis, unspecified; J32.9 Chronic sinusitis, unspecified; G47.33 Obstructive sleep apnea (adult) (pediatric); R73.03 Prediabetes; D72.819 Decreased white blood cell count, unspecified; Z79.82 Long term (current) use of aspirin; Z79.899 Other long term (current) drug therapy

== ENCOUNTER → 2020-12-20 | Outpatient (REF) | payer OTHER ==
[~2020-12-20] MED LIST changes: +ASPI-551 PO; +DEXA6TAB PO; +LORA-674 PO; +LOSA50TA88; +LOSA50TA88 PO; +MECL-58 PO; +PANT40TA29 PO
[2020-12-20 17:59] LABS: ALBUMIN 3.4 GM/DL (3.2-5.2); ALT/SGPT 37 U/L (12-78); BILIRUBIN,TOTAL 0.4 MG/DL (0.2-1.0); BLOOD UREA NITROGEN 9 MG/DL (7-18); CALCIUM LEVEL 9.3 MG/DL (8.5-10.1); CARBON DIOXIDE LEVEL 30 MEQ/L (21-32); CHLORIDE LEVEL 109 MEQ/L (98-107); CHOLESTEROL LEVEL 148 MG/DL (<200); CHOLESTEROL RISK RATIO 4.228 (<5); CREATININE FOR GFR 0.79 MG/DL (0.70-1.30); FREE T4 1.18 NG/DL (0.76-1.46); GLOMERULAR FILTRATION RATE > 60.0 (>60); GLUCOSE, FASTING 75 MG/DL (70-100); HDL CHOLESTEROL 35 MG/DL (>40); LDL CHOLESTEROL 74 MG/DL (<100); NON-HDL-C 113 MG/DL; POTASSIUM SERUM 3.9 MEQ/L (3.5-5.1); SODIUM LEVEL 143 MEQ/L (136-145); TOTAL PROTEIN 6.3 GM/DL (6.4-8.2); TRIGLYCERIDES LEVEL 193 MG/DL (<150)
[2020-12-20 20:00] LABS: HEMOGLOBIN A1c 5.4 %
== END ==
LOC: M SFHCPLAZ 15:45
PROVIDERS: ATTEND Nurse Practitioner Family
DX: I10 Essential (primary) hypertension (principal); E78.2 Mixed hyperlipidemia; R73.01 Impaired fasting glucose

== ENCOUNTER 2021-01-28 21:36 | Emergency (ER) | payer OTHER ==
[~2021-01-28] VITALS: Ht 193 cm; Wt 169.4 kg
[2021-01-28] MEDS ORDERED: NS 1,000 ML IV ONE (23:15)
[2021-01-28] MEDS ORDERED: KETOROLAC 30 MG/ML 1ML VIAL IV ONE (23:15)
[2021-01-29 00:20] LABS: BASO % 0.4 % (0.0-1.0); EOS # 0.1 10^3/uL (0.0-0.5); EOS % 0.4 % (0.0-3.0); HEMATOCRIT 42.9 % (42.0-52.0); HEMOGLOBIN 14.4 g/dl (13.5-17.5); LYMPH # 1.3 10^3/uL (1.5-5.0); LYMPH % 11.3 % (24.0-44.0); MEAN CORPUSCULAR HEMOGLOBIN 28.6 pg (27.0-33.0); MEAN CORPUSCULAR HGB CONC 33.6 g/dl (32.0-36.5); MEAN CORPUSCULAR VOLUME 85.3 fl (80.0-96.0); MONO # 0.5 10^3/uL (0.0-0.8); MONO % 4.6 % (2.0-8.0); NEUTROPHILS # 9.4 10^3/uL (1.5-8.5); PLATELET COUNT, AUTOMATED 234 10^3/uL (150-450); RED BLOOD COUNT 5.03 10^6/uL (4.30-6.10); WHITE BLOOD COUNT 11.4 10^3/uL (4.0-10.0)
[2021-01-29 00:48] LABS: ALBUMIN 3.8 GM/DL (3.2-5.2); ALT/SGPT 36 U/L (12-78); BILIRUBIN,DIRECT 0.1 MG/DL (0.0-0.2); BILIRUBIN,TOTAL 0.4 MG/DL (0.2-1.0); BLOOD UREA NITROGEN 11 MG/DL (7-18); CALCIUM LEVEL 9.3 MG/DL (8.5-10.1); CARBON DIOXIDE LEVEL 30 MEQ/L (21-32); CHLORIDE LEVEL 109 MEQ/L (98-107); CREATININE FOR GFR 1.14 MG/DL (0.70-1.30); GLOMERULAR FILTRATION RATE > 60.0 (>60); GLUCOSE, FASTING 132 MG/DL (70-100); LIPASE 101 U/L (73-393); POTASSIUM SERUM 4.1 MEQ/L (3.5-5.1); SODIUM LEVEL 144 MEQ/L (136-145); TOTAL PROTEIN 6.4 GM/DL (6.4-8.2)
[2021-01-29] MEDS ORDERED: ISOVUE-370 76% 100ML VIAL As Ordered ONE (01:35)
--- NOTE | 2021-01-29 04:51 | REPVR ---
PROCEDURE INFORMATION: Exam: CT Abdomen And Pelvis With Contrast Exam date and time: 01/29/2021 3:19 AM Age: 25 years old Clinical indication: Abdominal pain; Flank; Right; Additional info: R flank pain TECHNIQUE: Imaging protocol: Computed tomography of the abdomen and pelvis with contrast. Radiation optimization: All CT scans at this facility use at least one of these dose optimization techniques: automated exposure control; mA and/or kV adjustment per patient size (includes targeted exams where dose is matched to clinical indication); or iterative reconstruction. Contrast material: ISOVUE 370; Contrast volume: 100 ml; Contrast route: INTRAVENOUS (IV); COMPARISON: 1. CT ANGIO CHEST 2020-11-27 17:06 2. [place] PORTABLE CHEST X-RAY 2020-11-27 15:12 FINDINGS: Liver: Normal. No mass. Gallbladder and bile ducts: Normal. No calcified stones. No ductal dilation. Pancreas: Normal. No ductal dilation. Spleen: Normal. No splenomegaly. Adrenal glands: Normal. No mass. Kidneys and ureters: 3 mm partially obstructing calculus in the distal right ureter 1.5 cm from the vesicoureteral junction causes mild right hydroureter and hydronephrosis. Additional nonobstructing 2 mm right renal calculus. Small, less than 5 mm, renal hypodensity. Highly likely to be benign and does not require follow-up imaging or biopsy per ACR. Stomach and bowel: Unremarkable. No obstruction. No mucosal thickening. Appendix: No evidence of appendicitis. Intraperitoneal space: Unremarkable. No free air. No significant fluid collection. Vasculature: Unremarkable. No abdominal aortic aneurysm. Lymph nodes: Unremarkable. No enlarged lymph nodes. Urinary bladder: Unremarkable as visualized. Reproductive: Unremarkable as visualized. Bones/joints: Unremarkable. No acute fracture. Soft tissues: Unremarkable. IMPRESSION: 3 mm partially obstructing calculus in the distal right ureter 1.5 cm from the vesicoureteral junction causes mild right hydroureter and hydronephrosis. COMMENTS: Consistent with the [employer]'s Incidental Findings Committee white paper (J Am Tamiko Radiol 2018): Any incidental renal lesion less than 1 cm or classified as too small to characterize, or any incidental cystic renal lesion characterized as simple-appearing, is likely benign. No follow-up imaging is recommended for these lesions per consensus recommendations based on imaging criteria. Electronically signed by: Alfredo Saenz On 01/29/2021 04:50:33 AM
[2021-01-29 05:26] VITALS: BP 138/79
[2021-01-29] MEDS ORDERED: FLOM0.4C39 PO (05:26)
== END 2021-01-29 05:57 | disposition home or self-care (01) ==
LOC: M ED 21:36
DX: N20.1 Calculus of ureter (principal); E66.9 Obesity, unspecified; F41.9 Anxiety disorder, unspecified; F32.9 Major depressive disorder, single episode, unspecified; Z79.899 Other long term (current) drug therapy
CPT/HCPCS: 74177; 80048; 80076; 81001; 83690; 85025; 96361; 96374; 99284; J1885; Q9967

== ENCOUNTER → 2021-10-23 | Outpatient (CLI) | payer OTHER ==
[~2021-10-23] MED LIST changes: +FLOM0.4C39 PO; +LOSA25TA13 PO; -LOSA25TA14 PO; +LOSA50TA28; +LOSA50TA28 PO; -LOSA50TA88; -LOSA50TA88 PO
[2021-10-23 12:33] LABS: BASO # 0.1 10^3/uL (0.0-0.2); BASO % 0.8 % (0.0-1.0); EOS # 0.2 10^3/uL (0.0-0.5); EOS % 2.3 % (0.0-3.0); HEMATOCRIT 48.6 % (42.0-52.0); LYMPH # 3.5 10^3/uL (1.5-5.0); LYMPH % 34.4 % (24.0-44.0); MEAN CORPUSCULAR HEMOGLOBIN 28.7 pg (27.0-33.0); MEAN CORPUSCULAR HGB CONC 32.9 g/dl (32.0-36.5); MEAN CORPUSCULAR VOLUME 87.1 fl (80.0-96.0); MONO # 0.6 10^3/uL (0.0-0.8); MONO % 5.4 % (2.0-8.0); NEUTROPHILS # 5.7 10^3/uL (1.5-8.5); NEUTROPHILS % 56.6 % (36.0-66.0); PLATELET COUNT, AUTOMATED 265 10^3/uL (150-450); RED BLOOD COUNT 5.58 10^6/uL (4.30-6.10); WHITE BLOOD COUNT 10.1 10^3/uL (4.0-10.0)
[2021-10-23 12:48] LABS: HEMOGLOBIN A1c 5.1 %
[2021-10-23 13:07] LABS: MALB URINE SIEMENS 7.5 MG/L; MAU/CREAT RATIO 7.4 MCG/MG (0.0-30.0)
[2021-10-23 13:11] LABS: ALBUMIN 3.7 GM/DL (3.2-5.2); ALT/SGPT 44 U/L (12-78); BILIRUBIN,TOTAL 0.5 MG/DL (0.2-1.0); BLOOD UREA NITROGEN 11 MG/DL (7-18); CALCIUM LEVEL 9.3 MG/DL (8.5-10.1); CARBON DIOXIDE LEVEL 33 MEQ/L (21-32); CHLORIDE LEVEL 105 MEQ/L (98-107); FOLLICLE STIMULATING HORMONE 1.9 mIU/mL (1.4-18.1); GLOMERULAR FILTRATION RATE > 60.0 (>60); GLUCOSE, FASTING 85 MG/DL (70-100); LUTEINIZING HORMONE 4.2 mIU/mL (1.5-9.3); NT-PRO BNP 15 PG/ML (<125); POTASSIUM SERUM 3.9 MEQ/L (3.5-5.1); PTH INTACT 39.7 PG/ML (18.5-88.0); SODIUM LEVEL 142 MEQ/L (136-145); TOTAL 25(OH) VITAMIN D 30.7 NG/ML (30.0-100.0); TOTAL PROTEIN 6.7 GM/DL (6.4-8.2)
[2021-10-24 23:07] LABS: INSULIN LEVEL 25.7 uIU/mL (2.6-24.9); TESTOSTERONE FREE (DIRECT) 23.3 pg/mL (9.3-26.5)
== END ==
LOC: M WUC 09:22
PROVIDERS: ATTEND Family Medicine
DX: R73.01 Impaired fasting glucose (principal); I10 Essential (primary) hypertension; E55.9 Vitamin D deficiency, unspecified; E29.1 Testicular hypofunction

== ENCOUNTER → 2022-09-20 | Outpatient (CLI) | payer OTHER ==
[2022-09-20 12:20] LABS: ALBUMIN 3.7 G/DL (3.2-5.2); ALKALINE PHOSPHATASE 97 U/L (46-116); ALT/SGPT 32 U/L (7.0-40); AST/SGOT 21 U/L (<34); BILIRUBIN,TOTAL 0.6 MG/DL (0.3-1.2); BLOOD UREA NITROGEN 12 MG/DL (9-23); CARBON DIOXIDE LEVEL 33 MMOL/L (20-31); CHLORIDE LEVEL 105 MMOL/L (98-107); CHOLESTEROL LEVEL 136 MG/DL (<200); FREE T4 1.01 NG/DL (0.89-1.76); GLOMERULAR FILTRATION RATE > 60.0 (>60); GLUCOSE, FASTING 86 MG/DL (60-100); HDL CHOLESTEROL 41.2 MG/DL (>40); LDL CHOLESTEROL 75.2 MG/DL (<100); NON-HDL-C 94.8 MG/DL; POTASSIUM SERUM 4.3 MMOL/L (3.5-5.1); SODIUM LEVEL 143 MMOL/L (136-145); THYROID STIMULATING HORMONE 2.422 uIU/ML (0.55-4.78); TOTAL PROTEIN 6.1 G/DL (5.7-8.2); TRIGLYCERIDES LEVEL 98 MG/DL (<150)
[2022-09-20 13:36] LABS: HEMOGLOBIN A1c 5.2 % (4.0-6.0)
[2022-09-21 07:09] LABS: APOLIPOPROTEIN B/A-1 RATIO 0.6 ratio (0.0-0.7)
== END ==
LOC: M WUC 10:15
PROVIDERS: ATTEND Family Medicine
DX: R73.01 Impaired fasting glucose (principal); E78.2 Mixed hyperlipidemia

== ENCOUNTER → 2023-09-23 | Outpatient (CLI) | payer OTHER ==
[~2023-09-23] MED LIST changes: +LORA-1041 PO; -LORA-674 PO
[2023-09-23 15:50] LABS: BASO # 0.1 10^3/uL (0.0-0.2); EOS # 0.3 10^3/uL (0.0-0.5); EOS % 3.2 % (0.0-3.0); HEMATOCRIT 45.8 % (42.0-52.0); HEMOGLOBIN 15.3 g/dl (13.5-17.5); LYMPH # 2.6 10^3/uL (1.5-5.0); LYMPH % 33.2 % (24.0-44.0); MEAN CORPUSCULAR HEMOGLOBIN 28.7 pg (27.0-33.0); MEAN CORPUSCULAR HGB CONC 33.4 g/dl (32.0-36.5); MEAN CORPUSCULAR VOLUME 85.8 fl (80.0-96.0); MONO # 0.5 10^3/uL (0.0-0.8); MONO % 6.7 % (2.0-8.0); NEUTROPHILS # 4.3 10^3/uL (1.5-8.5); NEUTROPHILS % 55.6 % (36.0-66.0); PLATELET COUNT, AUTOMATED 238 10^3/uL (150-450); RED BLOOD COUNT 5.34 10^6/uL (4.30-6.10); WHITE BLOOD COUNT 7.7 10^3/uL (4.0-10.0)
[2023-09-23 16:16] LABS: ALBUMIN 3.5 G/DL (3.2-5.2); ALKALINE PHOSPHATASE 91 U/L (46-116); ALT/SGPT 22 U/L (7.0-40); AST/SGOT 21 U/L (<34); BILIRUBIN,TOTAL 0.5 MG/DL (0.3-1.2); BLOOD UREA NITROGEN 13 MG/DL (9-23); CALCIUM LEVEL 8.6 MG/DL (8.5-10.1); CARBON DIOXIDE LEVEL 29 MMOL/L (20-31); CHLORIDE LEVEL 105 MMOL/L (98-107); CREATININE, URINE 167.7 MG/DL; GLOMERULAR FILTRATION RATE > 60.0 (>60); GLUCOSE, FASTING 113 MG/DL (60-100); POTASSIUM SERUM 3.9 MMOL/L (3.5-5.1); SODIUM LEVEL 140 MMOL/L (136-145); TOTAL PROTEIN 6.2 G/DL (5.7-8.2)
[2023-09-23 16:17] LABS: MAU/CREAT RATIO 3.5 MCG/MG (0.0-30.0)
[2023-09-23 16:18] LABS: HEMOGLOBIN A1c 4.6 % (4.0-6.0)
[2023-09-23 16:20] LABS: FERRITIN 57.1 NG/ML (10.5-307.3)
== END ==
LOC: M PLALAB 14:24
PROVIDERS: ATTEND Family Medicine
DX: I10 Essential (primary) hypertension (principal)

== ENCOUNTER → 2023-10-09 | Outpatient (CLI) | payer OTHER | LOC: M PLAIMG 10:40 | PROVIDERS: ATTEND Family Medicine | DX: Z87.442 Personal history of urinary calculi (principal) ==

== ENCOUNTER → 2024-08-06 | Outpatient (CLI) | payer OTHER ==
[2024-08-06 11:53] LABS: BASO # 0.1 10^3/uL (0.0-0.2); BASO % 1.1 % (0.0-1.0); EOS # 0.3 10^3/uL (0.0-0.5); HEMATOCRIT 47.6 % (42.0-52.0); HEMOGLOBIN 15.7 g/dl (13.5-17.5); LYMPH % 40.4 % (24.0-44.0); MEAN CORPUSCULAR HEMOGLOBIN 28.2 pg (27.0-33.0); MEAN CORPUSCULAR VOLUME 85.5 fl (80.0-96.0); MONO # 0.6 10^3/uL (0.0-0.8); MONO % 7.8 % (2.0-8.0); NEUTROPHILS # 3.4 10^3/uL (1.5-8.5); NEUTROPHILS % 46.4 % (36.0-66.0); PLATELET COUNT, AUTOMATED 225 10^3/uL (150-450); RED BLOOD COUNT 5.57 10^6/uL (4.30-6.10); WHITE BLOOD COUNT 7.3 10^3/uL (4.0-10.0)
[2024-08-06 12:38] LABS: FREE T4 1.12 NG/DL (0.89-1.76); THYROID STIMULATING HORMONE 1.978 uIU/ML (0.55-4.78); URIC ACID 6.6 MG/DL (3.7-9.2)
[2024-08-06 12:40] LABS: CHOLESTEROL RISK RATIO 4.1 (<5); FERRITIN 64.9 NG/ML (10.5-307.3); HDL CHOLESTEROL 38.2 MG/DL (>40); LDL CHOLESTEROL 94.8 MG/DL (<100); NON-HDL-C 118.8 MG/DL
[2024-08-06 12:56] LABS: HEMOGLOBIN A1c 5.1 % (4.0-6.0)
== END ==
LOC: M PLALAB 08:55
PROVIDERS: ATTEND Family Medicine
DX: R73.01 Impaired fasting glucose (principal); D50.9 Iron deficiency anemia, unspecified; Z87.442 Personal history of urinary calculi

== ENCOUNTER → 2025-02-10 | Outpatient (CLI) | payer OTHER ==
[~2025-02-10] MED LIST changes: -FLOM0.4C39 PO; +TAMS-18 PO
== END ==
LOC: M PLAIMG 07:35
PROVIDERS: ATTEND Family Medicine
DX: J34.2 Deviated nasal septum (principal); J32.9 Chronic sinusitis, unspecified